=== PATIENT | male | born 1955 | race Caucasian/White ===

== ENCOUNTER → 2022-09-29 09:51 | Outpatient (CLI) | payer MEDICARE, BC, SELFPAY ==
[2022-09-29 14:28] LABS: Basophils # 0.1 K/mm3 (0-0.2); Basophils % 1.4 % (0.1-2.0); Eosinophils # 0.1 K/mm3 (0.0-0.4); Hematocrit 44.1 % (42.0-52.0); Hemoglobin 14.4 g/dL (14.1-18.0); Lymphocytes # 1.9 K/mm3 (0.7-4.5); Lymphocytes % 31.9 % (10-50); Mean Corpuscular HGB Conc 32.6 g/dL (31.8-35.4); Mean Corpuscular Hemoglobin 28.9 pg (27.0-31.2); Mean Corpuscular Volume 88.5 fl (80-94); Mean Platelet Volume 8.3 fl (7.4-10.4); Monocytes # 0.4 K/mm3 (0.1-1.0); Neutrophils # 3.4 K/mm3 (1.8-7.8); Neutrophils % 58.7 % (37.0-80.0); Platelet Count 321 K/mm3 (142-424); Red Blood Count 4.98 M/mm3 (4.60-6.20); Red Cell Distribution Width 13.7 % (11.5-17.5); White Blood Count 5.9 K/mm3 (4.8-10.8)
[2022-09-29 14:35] LABS: Alanine Aminotransferase 22 U/L (12-78); Albumin Level 4.1 g/dl (3.5-5.0); Albumin/Globulin Ratio 1.4 (1.1-1.8); Alkaline Phosphatase 92 U/L (38-126); Anion Gap 9.3 mEq/L (5-15); Aspartate Amino Transferase 34 U/L (17-59); Bilirubin,Total 0.8 mg/dl (0.2-1.3); Blood Urea Nitrogen 13 mg/dl (9-20); Calcium 8.9 mg/dl (8.4-10.2); Carbon Dioxide 25 mmol/L (22.0-30.0); Chloride 112 mmol/L (98-107); Chol/HDL Ratio 5.2 (1-3.5); Cholesterol 162 mg/dl (140-200); Estimated Glomerular Filt Rate 97 ml/min (>60); GFR (African American) 117 ML/MIN (>60); Globulin 2.9 g/dL (1.3-3.2); Glucose 103 mg/dl (74-100); HDL Cholesterol 31 mg/dl (40-60); Potassium 4.3 mmoL/L (3.5-5.1); Sodium 142 mmol/L (136-145); Triglycerides 65 mg/dl (30-150); VLDL Cholesterol 13 mg/dL (0-40)
[2022-09-29 14:52] LABS: Direct LDL Cholesterol 111.65 mg/dL (100-129)
[2022-09-29 14:58] LABS: 25-OH Vitamin D, Total 39.7 ng/mL (30-100)
[2022-09-29 15:14] LABS: Prostate Specific Ag Screen 2.7 ng/ml (0.0-4.0)
== END ==
PROVIDERS: PCP Family Medicine; Visit Provider Family Medicine
DX: Z00.00 Encounter for general adult medical examination without abnormal findings (principal); Z12.5 Encounter for screening for malignant neoplasm of prostate; Z83.3 Family history of diabetes mellitus; Z83.438 Family history of other disorder of lipoprotein metabolism and other lipidemia; R73.9 Hyperglycemia, unspecified
CPT/HCPCS: 80053; 80061; 82306; 84443; 85025; G0103

== ENCOUNTER → 2023-05-17 07:33 | Outpatient (CLI) | payer MEDICARE, MEDICAID, SELFPAY ==
--- NOTE | 2023-05-17 07:45 | ECG_ITS ---
APPROVED REPORT Exam: Resting ECG HR:59 bpm ECG Measurements Heart Rate 59 AXES AZ 163 P 52 QRSd 85 QRS 69 QT 389 T -7 QTc 387 Conclusion SINUS BRADYCARDIA ABNORMAL QRS-T ANGLE [QRS-T AXIS DIFFERENCE > 60] ABNORMAL ECG UNCONFIRMED REPORT Electronically signed by : Michael Tidwell MD 05/18/2023 17:20:21
[2023-05-17 07:57] LABS: Microscopic, Urine URINE MICROSCOPIC (MICROSCOPIC)
[2023-05-17 08:32] LABS: Basophils # 0.1 K/mm3 (0-0.2); Eosinophils # 0.2 K/mm3 (0.0-0.4); Eosinophils % 2.6 % (0.1-12.0); Hematocrit 45.3 % (42.0-52.0); Hemoglobin 13.9 g/dL (14.1-18.0); Lymphocytes # 1.6 K/mm3 (0.7-4.5); Lymphocytes % 28.5 % (10-50); Mean Corpuscular HGB Conc 30.7 g/dL (31.8-35.4); Mean Corpuscular Hemoglobin 28.8 pg (27.0-31.2); Mean Corpuscular Volume 93.7 fl (80-94); Mean Platelet Volume 6.8 fl (7.4-10.4); Monocytes # 0.3 K/mm3 (0.1-1.0); Monocytes % 5.8 % (1.7-9.3); Neutrophils # 3.5 K/mm3 (1.8-7.8); Neutrophils % 62.1 % (37.0-80.0); Platelet Count 298 K/mm3 (142-424); Red Blood Count 4.84 M/mm3 (4.60-6.20); Red Cell Distribution Width 13.6 % (11.5-17.5); White Blood Count 5.7 K/mm3 (4.8-10.8)
[2023-05-17 08:35] LABS: Appearance,Urine CLEAR (Clear); Bilirubin,Urine Negative (Negative); Blood, Urine Negative (Negative); Color,Urine YELLOW (Yellow); Glucose,Urine (UA) Negative (Negative); Ketones,Urine Negative (Negative); Leukocyte Esterase,Urine Negative (Negative); Nitrate,Urine Negative (Negative); Protein,Urine Negative (Negative); Specific Gravity, Urine >= 1.030 (1.005-1.030); Urobilinogen,Urine 0.2 EU/dl (0.2)
[2023-05-17 09:02] LABS: RBC,Urine Occasional #/hpf (0-3); Squamous Epithelial Cell,Urine Occasional #/hpf (0-5)
[2023-05-17 09:03] LABS: Amorphous Sediment,Urine Trace /lpf; Mucus,Urine Trace /lpf
[2023-05-17 09:09] LABS: Anion Gap 12.2 mEq/L (5-15); Blood Urea Nitrogen 13 mg/dl (9-20); Calcium 8.9 mg/dl (8.4-10.2); Carbon Dioxide 25 mmol/L (22.0-30.0); Chloride 111 mmol/L (98-107); Estimated Glomerular Filt Rate 96 ml/min (>60); GFR (African American) 117 ML/MIN (>60); Glucose 118 mg/dl (74-100); Potassium 4.2 mmoL/L (3.5-5.1); Sodium 144 mmol/L (136-145)
== END ==
PROVIDERS: PCP Family Medicine; Visit Provider Surgery
DX: K40.90 Unilateral inguinal hernia, without obstruction or gangrene, not specified as recurrent (principal); S20.219A Contusion of unspecified front wall of thorax, initial encounter; Z01.818 Encounter for other preprocedural examination
CPT/HCPCS: 36415; 80048; 81001; 85025; 93005

== ENCOUNTER 2023-05-25 05:56 | Day surgery (SDC) | payer MEDICARE, MEDICAID, SELFPAY ==
[2023-05-23 12:04] VITALS: BMI 25.0
[2023-05-25] VITALS (10 sets, daily range): BP systolic 116–148; BP diastolic 64–89; PULSE 76–95; RESP 16–20; TEMP 36.4–43; O2SAT 92–95
--- NOTE | 2023-05-25 06:51 | EXP.ANES.CKL ---
[facility] Disclaimer: The information contained in this section may have been updated after the patient was seen, as this information can be updated by other users. Medical History No active medical problems Surgical History H/O hernia repair Mandible open fracture Family History Other Coronary artery disease Diabetes Heart attack Hyperlipidemia Social History Smoking Status: Never smoker how long ago did patient quit smoking: Pt has never used tobacco products alcohol intake: never substance use type: denies use current occupational status: employed Travel in the last 8 weeks: None [facility] Anesthesia Checklist Patient Identification Patient Identification: Arm Band and Family Structural Data Admitted From: Home Planned Operative Procedure/s: Right Inguinal Hernia Repair Consent for Planned Operative Procedure(s) Verified: Yes Verified Documents: Surgical Consent and History and Physical NPO Status Verified Time NPO: 00:00 Additional verifications Anesthesia Reactions: No Hx Blood Transfusions: No Blood Transfusion Reaction: No Cephalosporin Allergy: No Previous Colonoscopy: Yes Airway Assessment Mallampati Score:: Class II C-Spine Mobility Assessed: Yes TMJ Mobility Assessed: Yes Dentition: Partials Neurological Assessment Level of Consciousness: Awake, Alert, Appropriate and Follows Commands Hx Seizures: No Numbness or tingling in extremities: No Anesthesia Plan Anesthesia Risk discussed: Yes ASA Class: I Anesthesia Type: General
--- NOTE | 2023-05-25 08:20 | EXP.ANES.CKL ---
[facility] Disclaimer: The information contained in this section may have been updated after the patient was seen, as this information can be updated by other users. Medical History No active medical problems Surgical History H/O hernia repair Mandible open fracture Family History Other Coronary artery disease Diabetes Heart attack Hyperlipidemia Social History (Updated 05/25/23 @ 06:53 by Deion Marroquin CRNA) Smoking Status: Never smoker how long ago did patient quit smoking: Pt has never used tobacco products alcohol intake: never substance use type: denies use current occupational status: employed Travel in the last 8 weeks: None [facility] Anesthesia Checklist Patient Identification Patient Identification: Arm Band and Family Structural Data Admitted From: Home Planned Operative Procedure/s: Right Inguinal Hernia Repair Consent for Planned Operative Procedure(s) Verified: Yes Verified Documents: Surgical Consent and History and Physical NPO Status Verified Time NPO: 00:00 Additional verifications Anesthesia Reactions: No Hx Blood Transfusions: No Blood Transfusion Reaction: No Cephalosporin Allergy: No Previous Colonoscopy: Yes Airway Assessment Mallampati Score:: Class II C-Spine Mobility Assessed: Yes TMJ Mobility Assessed: Yes Dentition: Partials Neurological Assessment Level of Consciousness: Awake, Alert, Appropriate and Follows Commands Hx Seizures: No Numbness or tingling in extremities: No Anesthesia Plan Anesthesia Risk discussed: Yes ASA Class: I Anesthesia Type: General
--- NOTE | 2023-05-25 09:12 | EXP.ANES.I ---
[facility] Anesthesia Record Part I Anesthesia Record I Intake, IV Amount: 1,600 Hydration: Adequate Estimated blood loss (mL): 15 Urine output (mL): 100 Blood Pressure: 146/78 SaO2: 92 Pulse Rate: 86 Airway Patency: Patent Respiratory Rate: 20 Temperature: 98.3 F Patient is:: Drowsy and Oral/Nasal airway Stable to PACU at:: 09:10
--- NOTE | 2023-05-25 09:21 | EXP.OP.NOTE ---
Date of procedure: 05/25/23 Pre-op Diagnosis:: Right inguinal hernia Post-op Diagnosis:: Same Procedure performed:: Open right inguinal hernia repair Surgeon:: Hai French MD MEDICAL/SURGERY REGISTERED NURSE:: Chelsea Cabral Anesthesia: GETAshley Estimated blood loss (mL): 15 Operative findings:: Complex indirect hernia with significant soft tissue thickening/adhesions throughout canal Operative note:: After informed consent was obtained the patient was taken to the operating room and placed in the supine position. General anesthesia was induced and his abdomen and groin/scrotum were prepped and draped in a sterile fashion. After infiltration with local anesthetic an oblique right groin incision was made sharply. Electrocautery was used to transect through Angel's fascia to the level of the external aponeurosis. The external aponeurosis was opened sharply to the level of the external ring. The contents of the canal were carefully elevated. Significant soft tissue thickening and adhesions noted throughout the canal. A combination of blunt dissection, sharp dissection, and electrocautery was utilized to free the thin-wall hernia sac. The cord structures were protected throughout the procedure. No obvious injury to the vas deferens or vessels was noted. An extra-large PerFix plug was secured in the defect with interrupted Ethibond. The PerFix overlay was then secured to the shelving edge inferiorly and fascial margin superiorly with interrupted Ethibond. The external aponeurosis was reapproximated with running 2-0 Vicryl. Angel's fascia was closed in the same manner. Skin was then reapproximated with running 3-0 Monocryl STRATAFIX. Dressings were applied and the patient was transferred to recovery in stable condition. Condition: stable Disposition: PACU Specimens:: none Complications:: No immediate
--- NOTE | 2023-05-25 11:17 | EXP.ANES.II ---
[facility] Anesthesia Record Part II Anesthesia Record Part II Discharge Time: 09:40 Destination: Surgical Day Care (OP Surgery) PACU nurse assessment reviewed?: Yes Patient Condition:: Good Anesthesia Complications:: None Swallowing reflex intact?: Yes Airway Patency: Patent Cyanosis?: No Blood Pressure: 125/78 SaO2: 95 Respiratory Rate: 16 Pulse Rate: 89 Temperature: 97.6 F Mental Status: Alert & Oriented Pain level:: 0 Nausea and/or vomitting:: None Intake, IV Amount: 500 Hydration: Adequate
[2023-05-25 13:47] LABS: Microscopic,Cath URINE MICROSCOPIC (MICROSCOPIC)
[2023-05-25 14:17] LABS: Appearance,Urine/Cath CLEAR (Clear); Bilirubin,Cath Negative (Negative); Blood, Urine/Cath Negative (Negative); Color,Urine/Cath YELLOW (Yellow); Glucose,Urine/Cath (UA) Negative (Negative); Ketones,Urine/Cath Negative (Negative); Leukocyte Esterase,Cath Negative (Negative); Nitrate,Cath Negative (Negative); Protein,Urine/Cath Negative (Negative); Urobilinogen,Cath 0.2 EU/dl (0.2)
[2023-05-25 16:49] LABS: Bacteria,Urine/Cath TRACE /lpf; Mucus,Urine/Cath Trace /lpf
--- NOTE | 2023-05-26 19:34 | EXP.ANES.CKL ---
[facility] Disclaimer: The information contained in this section may have been updated after the patient was seen, as this information can be updated by other users. Medical History (Updated 06/07/23 @ 10:24 by Hai French MD) Chest wall contusion No active medical problems Right inguinal hernia Toothache Surgical History (Updated 06/07/23 @ 10:02 by SANG Yeung) H/O hernia repair History of colonoscopy History of inguinal hernia repair Mandible open fracture Family History Other Coronary artery disease Diabetes Heart attack Hyperlipidemia Social History Smoking Status: Never smoker how long ago did patient quit smoking: Pt has never used tobacco products alcohol intake: never substance use type: denies use current occupational status: employed Travel in the last 8 weeks: None [facility] Anesthesia Checklist Patient Identification Patient Identification: Arm Band and Family Structural Data Admitted From: Home Additional verifications Anesthesia Reactions: No Hx Blood Transfusions: No Blood Transfusion Reaction: No Cephalosporin Allergy: No
== END 2023-05-25 10:15 | disposition home or self-care (01) ==
PROVIDERS: PCP Family Medicine; Visit Provider Surgery
PROC: (CPT 49505; principal; 2023-05-25 07:30)
DX: K40.90 Unilateral inguinal hernia, without obstruction or gangrene, not specified as recurrent (principal)
CPT/HCPCS: 49505; 81001; 96374; J2405

== ENCOUNTER 2023-09-21 22:59 | Outpatient (CLI) | payer MEDICARE, MEDICAID, SELFPAY ==
[2023-09-21 18:59] LABS: Basophils # 0.1 K/mm3 (0-0.2); Basophils % 1.1 % (0.1-2.0); Eosinophils # 0.1 K/mm3 (0.0-0.4); Eosinophils % 1.5 % (0.1-12.0); Hematocrit 45.9 % (42.0-52.0); Hemoglobin 15.1 g/dL (14.1-18.0); Lymphocytes # 1.8 K/mm3 (0.7-4.5); Lymphocytes % 28.2 % (10-50); Mean Corpuscular HGB Conc 32.8 g/dL (31.8-35.4); Mean Corpuscular Hemoglobin 30.1 pg (27.0-31.2); Mean Corpuscular Volume 91.9 fl (80-94); Mean Platelet Volume 9.3 fl (7.4-10.4); Monocytes # 0.4 K/mm3 (0.1-1.0); Monocytes % 6.6 % (1.7-9.3); Neutrophils # 3.9 K/mm3 (1.8-7.8); Neutrophils % 62.6 % (37.0-80.0); Platelet Count 286 K/mm3 (142-424); Red Cell Distribution Width 14.1 % (11.5-17.5); White Blood Count 6.3 K/mm3 (4.8-10.8)
[2023-09-21 19:47] LABS: Alanine Aminotransferase 19 U/L (12-78); Albumin Level 4.1 g/dl (3.5-5.0); Albumin/Globulin Ratio 1.4 (1.1-1.8); Alkaline Phosphatase 95 U/L (38-126); Anion Gap 13.1 mEq/L (5-15); Aspartate Amino Transferase 28 U/L (17-59); Bilirubin,Total 0.7 mg/dl (0.2-1.3); Blood Urea Nitrogen 15 mg/dl (9-20); Calcium 9.3 mg/dl (8.4-10.2); Carbon Dioxide 24 mmol/L (22.0-30.0); Chloride 108 mmol/L (98-107); Chol/HDL Ratio 6.8 (1-3.5); Cholesterol 198 mg/dl (140-200); Estimated Glomerular Filt Rate 96 ml/min (>60); GFR (African American) 117 ML/MIN (>60); Globulin 2.9 g/dL (1.3-3.2); Glucose 99 mg/dl (74-100); HDL Cholesterol 29 mg/dl (40-60); Potassium 4.1 mmoL/L (3.5-5.1); Sodium 141 mmol/L (136-145); Triglycerides 75 mg/dl (30-150); VLDL Cholesterol 15 mg/dL (0-40)
[2023-09-21 19:58] LABS: Direct LDL Cholesterol 136.85 mg/dL (100-129)
== END 2023-09-21 23:59 ==
LOC: LAB.DROPOF 22:59
PROVIDERS: PCP Family Medicine; Visit Provider Family Medicine
DX: R53.83 Other fatigue; E78.9 Disorder of lipoprotein metabolism, unspecified; Z87.19 Personal history of other diseases of the digestive system; Z98.890 Other specified postprocedural states
CPT/HCPCS: 80053; 80061; 85025

== ENCOUNTER 2023-12-29 09:57 | Outpatient (CLI) | payer MEDICARE, MEDICAID, SELFPAY ==
--- NOTE | 2023-12-29 09:57 | CT_ITS ---
FINAL REPORT TECHNIQUE: Axial CT images of the abdomen and pelvis were obtained before and after the administration of IV contrast. Oral contrast was administered.This study was performed with techniques to keep radiation doses as low as reasonably achievable (ALARA). Individualized dose reduction techniques using automated exposure control or adjustment of mA and/or kV according to the patient''s size were employed. CLINICAL HISTORY: Right flank pain w/ hematuria, distention COMPARISON: None FINDINGS: Abdomen: Mild atelectasis is noted in the lung bases. A large hiatal hernia is present. The heart is normal in size. The liver has an unremarkable appearance, without evidence of mass or biliary duct dilatation. . The spleen is unremarkable. No adrenal masses present. The pancreas has an unremarkable appearance. The kidneys enhance normally. No evidence of renal stone or hydronephrosis is identified. Multiple bilateral renal cysts are present. The aorta is normal in caliber. There is no free fluid or adenopathy. No mass or abnormal fluid collection is seen. Precontrast images demonstrate no evidence of nephrolithiasis. Pelvis: The appendix is normal in appearance. The urinary bladder is unremarkable. No inflammatory process is seen. There is a small left inguinal hernia containing fat. There is a 30 mm low-attenuation collection in the upper right inguinal region that likely represents a postoperative seroma from prior inguinal hernia repair. 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 There is no evidence of mass or adenopathy. There is no evidence of bowel obstruction. IMPRESSION: Large hiatal hernia. No renal stones or hydronephrosis. Small left inguinal hernia with fat. There is a 30 mm low-attenuation collection in the upper right inguinal region that likely represents a postoperative seroma. Reviewed, Interpreted and Dictated by Herman Jordan III, MD Transcribed by Sola Hernandes Authenticated and [facility]
[2023-12-29 10:43] LABS: Blood Urea Nitrogen 16 mg/dl (9-20); Estimated Glomerular Filt Rate 96 ml/min (>60); GFR (African American) 117 ML/MIN (>60)
[2023-12-29] MEDS: SODIUM CHLORIDE 0.9% 10ML SYR (RAD ONLY) 10 ML IV (11:12)
[2023-12-29] MEDS: IOPAMIDOL-370 (76%);100ML BOTTLE 75 ML IV (11:12)
[2023-12-29 12:06] LABS: Prostate Specific Ag Screen 2.5 ng/ml (0.0-4.0)
== END 2023-12-29 23:59 | disposition home or self-care (01) ==
LOC: RAD 09:57
PROVIDERS: PCP Family Medicine; Visit Provider Family Medicine
DX: R10.9 Unspecified abdominal pain (principal); R31.9 Hematuria, unspecified; Z12.5 Encounter for screening for malignant neoplasm of prostate
CPT/HCPCS: 36415; 74178; 82565; 84520; G0103; Q9967

== ENCOUNTER 2024-03-27 09:43 | Outpatient (CLI) | payer MEDICARE, MEDICAID, SELFPAY ==
[2024-03-27 19:08] LABS: Basophils # 0.1 K/mm3 (0-0.2); Basophils % 1.3 % (0.1-2.0); Eosinophils # 0.1 K/mm3 (0.0-0.4); Eosinophils % 1.1 % (0.1-12.0); Hematocrit 46.2 % (42.0-52.0); Hemoglobin 14.9 g/dL (14.1-18.0); Lymphocytes # 1.8 K/mm3 (0.7-4.5); Lymphocytes % 26.9 % (10-50); Mean Corpuscular HGB Conc 32.3 g/dL (31.8-35.4); Mean Corpuscular Hemoglobin 30.2 pg (27.0-31.2); Mean Corpuscular Volume 93.7 fl (80-94); Mean Platelet Volume 9.1 fl (7.4-10.4); Monocytes # 0.5 K/mm3 (0.1-1.0); Monocytes % 7.3 % (1.7-9.3); Neutrophils # 4.4 K/mm3 (1.8-7.8); Neutrophils % 63.4 % (37.0-80.0); Platelet Count 301 K/mm3 (142-424); Red Blood Count 4.93 M/mm3 (4.60-6.20); White Blood Count 6.9 K/mm3 (4.8-10.8)
[2024-03-27 20:00] LABS: Alanine Aminotransferase 20 U/L (12-78); Albumin/Globulin Ratio 1.2 (1.1-1.8); Alkaline Phosphatase 99 U/L (38-126); Anion Gap 11.6 mEq/L (5-15); Aspartate Amino Transferase 27 U/L (17-59); Bilirubin,Total 1.1 mg/dl (0.2-1.3); Blood Urea Nitrogen 18 mg/dl (9-20); Calcium 9.4 mg/dl (8.4-10.2); Carbon Dioxide 26 mmol/L (22.0-30.0); Chloride 107 mmol/L (98-107); Chol/HDL Ratio 6.5 (1-3.5); Cholesterol 208 mg/dl (140-200); Estimated Glomerular Filt Rate 84 ml/min (>60); GFR (African American) 102 ML/MIN (>60); Globulin 3.4 g/dL (1.3-3.2); Glucose 111 mg/dl (74-100); HDL Cholesterol 32 mg/dl (40-60); Potassium 4.6 mmoL/L (3.5-5.1); Sodium 140 mmol/L (136-145); Total Protein,Serum 7.4 g/dl (6.3-8.2); Triglycerides 104 mg/dl (30-150); VLDL Cholesterol 21 mg/dL (0-40)
[2024-03-27 20:12] LABS: Direct LDL Cholesterol 130.06 mg/dL (100-129)
[2024-03-28 13:08] LABS: Prostate Specific Ag Screen 3.4 ng/ml (0.0-4.0)
== END 2024-03-27 23:59 | disposition home or self-care (01) ==
LOC: LAB.DROPOF 03-28 09:43
PROVIDERS: PCP Family Medicine; Visit Provider Family Medicine
DX: R10.9 Unspecified abdominal pain; E78.6 Lipoprotein deficiency; Z12.5 Encounter for screening for malignant neoplasm of prostate
CPT/HCPCS: 80053; 80061; 85025; G0103

== ENCOUNTER 2024-10-23 10:45 | Outpatient (CLI) | payer OTHER, MEDICAID, SELFPAY ==
[2024-10-23 21:45] LABS: Basophils # 0.1 K/mm3 (0-0.2); Basophils % 1.7 % (0.1-2.0); Eosinophils # 0.1 K/mm3 (0.0-0.4); Eosinophils % 1.1 % (0.1-12.0); Hematocrit 46.3 % (42.0-52.0); Hemoglobin 14.6 g/dL (14.1-18.0); Lymphocytes # 1.7 K/mm3 (0.7-4.5); Lymphocytes % 26.5 % (10-50); Mean Corpuscular HGB Conc 31.5 g/dL (31.8-35.4); Mean Platelet Volume 9.7 fl (7.4-10.4); Monocytes # 0.5 K/mm3 (0.1-1.0); Monocytes % 7.2 % (1.7-9.3); Neutrophils # 4.1 K/mm3 (1.8-7.8); Neutrophils % 63.3 % (37.0-80.0); Platelet Count 332 K/mm3 (142-424); Red Blood Count 5.03 M/mm3 (4.60-6.20); Red Cell Distribution Width 14.2 % (11.5-17.5); White Blood Count 6.5 K/mm3 (4.8-10.8)
[2024-10-23 23:01] LABS: Albumin Level 4.2 g/dl (3.5-5.0); Chloride 107 mmol/L (98-107); Sodium 140 mmol/L (136-145)
[2024-10-23 23:02] LABS: Potassium 4.3 mmoL/L (3.5-5.1)
[2024-10-23 23:04] LABS: Alanine Aminotransferase 22 U/L (12-78); Albumin/Globulin Ratio 1.5 (1.1-1.8); Alkaline Phosphatase 123 U/L (38-126); Anion Gap 10.3 mEq/L (5-15); Aspartate Amino Transferase 29 U/L (17-59); Bilirubin,Total 0.7 mg/dl (0.2-1.3); Blood Urea Nitrogen 12 mg/dl (9-20); Carbon Dioxide 27 mmol/L (22.0-30.0); Cholesterol 184 mg/dl (140-200); Estimated Glomerular Filt Rate 96 ml/min (>60); GFR (African American) 116 ML/MIN (>60); Globulin 2.8 g/dL (1.3-3.2); Triglycerides 54 mg/dl (30-150); VLDL Cholesterol 11 mg/dL (0-40)
[2024-10-23 23:05] LABS: Calcium 9.3 mg/dl (8.4-10.2); Chol/HDL Ratio 5.4 (1-3.5); Glucose 103 mg/dl (74-100); HDL Cholesterol 34 mg/dl (40-60)
[2024-10-23 23:15] LABS: Direct LDL Cholesterol 132.21 mg/dL (100-129)
[2024-10-23 23:48] LABS: HIV Combo NEGATIVE (Negative)
[2024-10-23 23:54] LABS: Hepatitis C Ab Qual. W/ RFX NEGATIVE (Negative)
== END 2024-10-23 23:59 | disposition home or self-care (01) ==
LOC: LAB.DROPOF 10-24 12:34
PROVIDERS: PCP Family Medicine; Visit Provider Family Medicine
DX: Z00.00 Encounter for general adult medical examination without abnormal findings (principal); Z11.59 Encounter for screening for other viral diseases
CPT/HCPCS: 80053; 80061; 85025; 86803; 87389

== ENCOUNTER 2025-06-25 09:50 | Outpatient (CLI) | payer MEDICARE, MEDICAID, SELFPAY ==
--- OUTSIDE RECORDS SUMMARY | 2025-06-26 20:14 | XMS_ITS | Data Portability ---
Author Organization [facility] Address [address] [place] [address] Assessment No assessment recorded. Plan of Treatment Reminders Order Date Submit Date Provider Last Modified By Organization Details Last Modified Time Details Appointments None recorded. Lab PSA, total, serum or plasma 2021 FREIDA [facility], [address], [place], [place], [address], 09:15:02 lipid panel, serum 2021 022 FREIDA [facility], [address], [place], [place], [address], 09:15:01 CMP, serum or plasma 2021 022 FREIDA [facility], [address], [place], [place], [address], 09:15:00 lipid panel, serum 2021 022 [facility], [address], [place], [place], [address], 10:21:56 CMP, serum or plasma 2021 022 [email or web address] [facility], [address], [place], [place], [address], 10:21:56 HbA1c (hemoglobin A1c), blood 2021 022 [email or web address] [facility], [address] [place], [address], 10:17:34 glucose, fingerstick , blood 2021 [email or web address] [facility], [address] [place], [address], 10:17:34 TSH, ultra-sensi tive, serum 2021 [email or web address] [facility], [address], [place], [place], [address], 10:21:56 CBC w/ auto diff 2021 [email or web address] [facility], [address], [place], [place], [address], 10:21:56 PSA, serum or plasma 2021 FREIDA [facility], [address], [place], [place], [address], 08:26:32 vitamin D, 25-hydroxy, total, serum 2021 [email or web address] [facility], [address], [place], [place], [address], 13:59:30 lipid panel, serum 2021 FREIDA [facility], [address], [place], [place], [address], 08:26:32 CMP, serum or plasma 2021 FREIDA [facility], [address] [place], [place], [address], 08:26:31 TSH, ultra-sensi tive, serum 2021 TINNIE [facility], [address], [place], [place], [address], 04:09:14 CBC w/ auto diff 2021 TINNIE [facility], [address], [place], [place], [address], 08:26:30 Referral None recorded. Procedures None recorded. Surgeries None recorded. Imaging XR, cervical spine, 2 or 3 view [address], [address] [place], [address], 15:05:47 XR, sinuses, paranasal, 3 or more view 2021 [facility], [address] [place], [address], 09:06:27 Medication Orders tramadol 50 mg tablet 2021 [facility], [address] [place] [address], [address], 15:40:45 cyclobenzap rine 5 mg tablet 2021 [facility], [address] [place] [address], [address], 15:40:41 diclofenac sodium 50 mg tablet,isaias yed release [address] [facility], [address] [place] [address], [address], 15:05:47 omeprazole 20 mg capsule,del ayed release 01/26/ 2022 01/26/2 022 [email or web address] [facility], [address] [place] [address], [address], 12:56:42 prednisone 5 mg tablets in a dose pack 2021 FREIDA [facility], [address] [place] [address], [address], 08:38:06 Bactrim DS 800 mg-160 mg tablet 2021 [email or web address] [facility], [address] [place] [address], [address], 08:36:13 Patient TargetsNo targets recorded. Patient Instructions Encounter Date Encounter Id Patient Instructions Last Modified By Organization Details Last Modified Time 09/15/2021 [id number] Acute Sinusitis: Care Instructions [email or web address] Not available 09/16/2021 15:25:27 gastroesophageal reflux disease (GERD): care instructions [email or web address] Not available 09/16/2021 15:25:27 high cholesterol : care instructions Not available 09/16/2021 15:25:27 Patient comes in with a couple of things he still complaining of abdominal discomfort he does have a history of hiatal hernia he also complains of drainage with some headache and sinus-like symptoms.Mild thickening is noted on sinus x-rays I feel like he most likely does have a and sinusitis I suspect his abdominal does discomfort is so associated with his GERD we will go ahead and treat both of these see how he does if he does not get substantial relief I would be for referring him particularly for ENT and possibly GI consideration thank you. [email or web address] Not available 09/16/2021 15:24:59 03/31/2022 [id number] pt. complaining of chonic h/a but says is improvede, still with fatigue, to get base line lab work, if h/a cont. may need ent or neurology. back with him on lab work. [email or web address] Not available 04/04/2022 10:55:22 06/09/2022 [id number] arthritis: care instructions Not available 06/09/2022 14:51:29 osteoarthritis: care instructions [email or web address] Not available 06/09/2022 14:51:29 Patient complain ing of cervical crepitance and some cervical discomfort patient states he hit his head about 8 days ago and since that time is So x-ray did reveal moderate degenerative or osteoarthritis changesOffer him diclofenac 50 mg twice daily patient is also requesting some blood work going get some routine blood work on him today as wellDiscomfort if his discomfort continues he is to return thank you. [email or web address] Not available 06/09/2022 14:51:04 07/07/2022 [id number] This patient com es in after having a fall 2 days ago said he fell quite hard on him on some steps he complains of pain in his right lower costal vertebral angle he denies pain in his back per se are his extremities.Urinalys is is negative for blood etc. most likely this is muscular I did we have been treating with muscle relaxants pain medication. He is to add heat etc. if his discomfort persist we will get an x-ray on him and outside of this office. Tachycardia is is off today due to illness he is to return as needed depending upon how his symptoms progress thank you [email or web address] Not available 07/07/2022 16:44:10 Reason for Referral None Reported. Results Created Date Observation Date Name Description Value Unit Range Abnormal Flag Note LastModifiedBy Organization Detail LastModifiedTime 11/04/19 22 11/04/2021 CBC WITH DIFFE RENTI AL/PL ATELE T WBC 6.2 x10e3 /uL 3.4-10 .8 Not Available [facility] ([facility]) [address] [place], [address], 11/04/2021 08:26:30 11/04/19 22 11/04/2021 CBC WITH DIFFE RENTI AL/PL ATELE T RBC 5.09 x10e6 /uL 4.14-5 .80 Not Available [facility] ([facility]) [address] [place], [address], 11/04/2021 08:26:30 11/04/19 22 11/04/2021 CBC WITH DIFFE RENTI AL/PL ATELE T hemoglobin 14.9 g/dL 13.0-1 7.7 Not Available [facility] ([facility]) [address] [place], [address], 11/04/2021 08:26:30 11/04/19 22 11/04/2021 CBC WITH DIFFE RENTI AL/PL ATELE T hematocrit 44.9 % 37.5-5 1.0 Not Available [facility] ([facility]) [address] [place], [address], 11/04/2021 08:26:30 11/04/19 22 11/04/2021 CBC WITH DIFFE RENTI AL/PL ATELE T MCV 88 fL 79-97 Not Available [facility] ([facility]) [address] [facility], [place], [address], 11/04/2021 08:26:30 11/04/19 22 11/04/2021 CBC WITH DIFFE RENTI AL/PL ATELE T MCH 29.3 pg 26.6-3 3.0 Not Available [facility] ([facility]) [address] [place], [address], 11/04/2021 08:26:30 11/04/19 22 11/04/2021 CBC WITH DIFFE RENTI AL/PL ATELE T MCHC 33.2 g/dL 31.5-3 5.7 Not Available [facility] ([facility]) [address] [place], [address], 11/04/2021 08:26:30 11/04/19 22 11/04/2021 CBC WITH DIFFE RENTI AL/PL ATELE T RDW 13.6 % 11.6-1 5.4 Not Available [facility] ([facility]) [address] [place], [address], 11/04/2021 08:26:30 11/04/19 22 11/04/2021 CBC WITH DIFFE RENTI AL/PL ATELE T platelets 290 x10e3 /uL 150-45 0 Not Available [facility] ([facility]) [address] [facility], [place], [address], 11/04/2021 08:26:30 11/04/19 22 11/04/2021 CBC WITH DIFFE RENTI AL/PL ATELE T neutrophils 61 % not estab. Not Available [facility] ([facility]) [address] [facility], [place], [address], 11/04/2021 08:26:30 11/04/19 22 11/04/2021 CBC WITH DIFFE RENTI AL/PL ATELE T lymphs 28 % not estab. Not Available [facility] ([facility]) [address] [facility], [place], [address], 11/04/2021 08:26:30 11/04/19 22 11/04/2021 CBC WITH DIFFE RENTI AL/PL ATELE T monocytes 8 % not estab. Not Available [facility] ([facility]) [address] [facility], [place], [address], 11/04/2021 08:26:30 11/04/19 22 11/04/2021 CBC WITH DIFFE RENTI AL/PL ATELE T eos 2 % not estab. Not Available [facility] ([facility]) [address] [facility], [place], [address], 11/04/2021 08:26:30 11/04/19 22 11/04/2021 CBC WITH DIFFE RENTI AL/PL ATELE T basos 1 % not estab. Not Available [facility] ([facility]) [address] [facility], [place], [address], 11/04/2021 08:26:30 11/04/19 22 11/04/2021 CBC WITH DIFFE RENTI AL/PL ATELE T immature cells MILK PASTEURIZER Not Available [facility] ([facility]) [address] [facility], [place], [address], 11/04/2021 08:26:30 11/04/19 22 11/04/2021 CBC WITH DIFFE RENTI AL/PL ATELE T neutrophils (absolute) 3.8 x10e3 /uL 1.4-7. 0 Not Available [facility] ([facility]) [address] [facility], [place], [address], 11/04/2021 08:26:30 11/04/19 22 11/04/2021 CBC WITH DIFFE RENTI AL/PL ATELE T lymphs (absolute) 1.7 x10e3 /uL 0.7-3. 1 Not Available [facility] ([facility]) [address] [place], [address], 11/04/2021 08:26:30 11/04/19 22 11/04/2021 CBC WITH DIFFE RENTI AL/PL ATELE T monocytes(ab solute) 0.5 x10e3 /uL 0.1-0. 9 Not Available [facility] ([facility]) [address] [place], [address], 11/04/2021 08:26:30 11/04/19 22 11/04/2021 CBC WITH DIFFE RENTI AL/PL ATELE T eos (absolute) 0.1 x10e3 /uL 0.0-0. 4 Not Available [facility] ([facility]) [address] [place], [address], 11/04/2021 08:26:30 11/04/19 22 11/04/2021 CBC WITH DIFFE RENTI AL/PL ATELE T baso (absolute) 0.1 x10e3 /uL 0.0-0. 2 Not Available [facility] ([facility]) [address] [place], [address], 11/04/2021 08:26:30 11/04/19 22 11/04/2021 CBC WITH DIFFE RENTI AL/PL ATELE T immature granulocytes 0 % not estab. Not Available [facility] ([facility]) [address] [facility], [place], [address], 11/04/2021 08:26:30 11/04/19 22 11/04/2021 CBC WITH DIFFE RENTI AL/PL ATELE T immature grans (abs) 0.0 x10e3 /uL 0.0-0. 1 Not Available [facility] ([facility]) [address] [facility], [place], [address], 11/04/2021 08:26:30 11/04/19 22 11/04/2021 CBC WITH DIFFE RENTI AL/PL ATELE T NRBC MILK PASTEURIZER Not Available [facility] ([facility]) [address] [facility], [place], [address], 11/04/2021 08:26:30 11/04/19 22 11/04/2021 CBC WITH DIFFE RENTI AL/PL ATELE T hematology comments: MILK PASTEURIZER Not Available [facility] ([facility]) [address] [facility], [place], [address], 11/04/2021 08:26:30 11/04/19 22 11/04/2021 COMP. METAB OLIC PANEL (14) glucose 97 mg/dL 65-99 Not Available [facility] ([facility]) [address] [facility], [place], [address], 11/04/2021 08:26:31 11/04/19 22 11/04/2021 COMP. METAB OLIC PANEL (14) BUN 15 mg/dL 8-27 Not Available [facility] ([facility]) [address] [facility], [place], [address], 11/04/2021 08:26:31 11/04/19 22 11/04/2021 COMP. METAB OLIC PANEL (14) creatinine 0.83 mg/dL 0.76-1 .27 Not Available [facility] ([facility]) [address] [facility], [place], [address], 11/04/2021 08:26:31 03/16/20 22 11/04/2021 COMP. METAB OLIC PANEL (14) eGFR 97 mL/mi n/1.7 3 >59 Not Available [facility] ([facility]) [address] [place], [address], 11/04/2021 08:26:31 11/04/19 22 11/04/2021 COMP. METAB OLIC PANEL (14) BUN/creatini ne ratio 18 10-24 Not Available [facility] ([facility]) [address] [place], [address], 11/04/2021 08:26:31 11/04/19 22 11/04/2021 COMP. METAB OLIC PANEL (14) sodium 143 mmol/ L 134-14 4 Not Available [facility] ([facility]) [address] [place], [address], 11/04/2021 08:26:31 11/04/19 22 11/04/2021 COMP. METAB OLIC PANEL (14) potassium 4.4 mmol/ L 3.5-5. 2 Not Available [facility] ([facility]) [address] [place], [address], 11/04/2021 08:26:31 11/04/19 22 11/04/2021 COMP. METAB OLIC PANEL (14) chloride 107 mmol/ L 96-106 above high normal Not Available [facility] ([facility]) [address] [place], [address], 11/04/2021 08:26:31 11/04/19 22 11/04/2021 COMP. METAB OLIC PANEL (14) carbon dioxide, total 21 mmol/ L 20-29 Not Available [facility] ([facility]) [address] [place], [address], 11/04/2021 08:26:31 11/04/19 22 11/04/2021 COMP. METAB OLIC PANEL (14) calcium 9.3 mg/dL 8.6-10 .2 Not Available [facility] ([facility]) [address] [facility], [place], [address], 11/04/2021 08:26:31 11/04/19 22 11/04/2021 COMP. METAB OLIC PANEL (14) protein, total 7.3 g/dL 6.0-8. 5 Not Available [facility] ([facility]) [address] [facility], [place], [address], 11/04/2021 08:26:31 11/04/19 22 11/04/2021 COMP. METAB OLIC PANEL (14) albumin 4.4 g/dL 3.8-4. 8 Not Available [facility] ([facility]) [address] [facility], [place], [address], 11/04/2021 08:26:31 11/04/19 22 11/04/2021 COMP. METAB OLIC PANEL (14) globulin, total 2.9 g/dL 1.5-4. 5 Not Available [facility] ([facility]) [address] [facility] [place], [address], 11/04/2021 08:26:31 11/04/19 22 11/04/2021 COMP. METAB OLIC PANEL (14) A/G ratio 1.5 1.2-2. 2 Not Available [facility] ([facility]) [address] [facility], [place], [address], 11/04/2021 08:26:31 11/04/19 22 11/04/2021 COMP. METAB OLIC PANEL (14) bilirubin, total 0.6 mg/dL 0.0-1. 2 Not Available [facility] ([facility]) [address] [facility] [place], [address], 11/04/2021 08:26:31 11/04/19 22 11/04/2021 COMP. METAB OLIC PANEL (14) alkaline phosphatase 101 IU/L 44-121 Not Available [facility] [address] [facility] [place], [address], 11/04/2021 08:26:31 11/04/19 22 11/04/2021 COMP. METAB OLIC PANEL (14) AST (SGOT) 18 IU/L 0-40 Not Available [facility] ([facility]) [address] [facility] [place], [address], 11/04/2021 08:26:31 11/04/19 22 11/04/2021 COMP. METAB OLIC PANEL (14) ALT (SGPT) 13 IU/L 0-44 Not Available [facility] ([facility]) [address] [facility] [place], [address], 11/04/2021 08:26:31 11/04/19 22 11/04/2021 LIPID PANEL cholesterol, total 195 mg/dL 100-19 9 Not Available [facility] ([facility]) [address] [place], [address], 11/04/2021 08:26:31 11/04/19 22 11/04/2021 LIPID PANEL triglyceride s 82 mg/dL 0-149 Not Available [facility] ([facility]) [address] [place], [address], 11/04/2021 08:26:31 11/04/19 22 11/04/2021 LIPID PANEL HDL cholesterol 31 mg/dL >39 below low normal Not Available [facility] ([facility]) [address] [place], [address], 11/04/2021 08:26:31 11/04/19 22 11/04/2021 LIPID PANEL VLDL cholesterol derek 15 mg/dL 5-40 Not Available [facility] ([facility]) [address] [place], [address], 11/04/2021 08:26:31 11/04/19 22 11/04/2021 LIPID PANEL LDL chol calc (nih) 149 mg/dL 0-99 above high normal Not Available [facility] ([facility]) [address] [facility], [place], [address], 11/04/2021 08:26:31 11/04/19 22 11/04/2021 LIPID PANEL comment: MILK PASTEURIZER Not Available [facility] ([facility]) [address] [facility], [place], [address], 11/04/2021 08:26:31 11/04/1911/03/2021 PSA TOTAL (REFL EX TO FREE) reflex criteria Commen t The perce nt free PSA is perfo rmed on a refle x basis only when the total PSA is betwe en 4.0 and 10.0 ng/mL . Not Available [facility] ([facility]) [address] [facility], [place], [address], 11/04/2021 08:26:32 11/04/1911/04/2021 PSA TOTAL (REFL EX TO FREE) prostate specific Ag 2.5 NG/mL 0.0-4. 0 Ailyn ECLIA metho dolog y. Accor ding to the Ameri can Urolo gical Assoc iatio n, Serum PSA shoul d decre ase and remai n at undet ectab le level s after radic al prost atect dominick. The AUA defin es bioch emica l recur rence as an initi al PSA value 0.2 ng/mL or great er follo wed by a subse quent confi rmato ry PSA value 0.2 ng/mL or great er. Value s obtai antione with diffe rent assay metho ds or kits canno t be used inter brand eably . Resul ts canno t be inter prete d as absol dario evide nce of the prese nce or absen ce of michael flannery se. Not Available [facility] ([facility]) [address] [facility], [place], [address], 11/04/2021 08:26:32 11/04/1911/04/2021 VERBA L ORDER see below: Commen t: Michael hunteri de reque sted infor matalen n and fax to [phone]. [place] of [place] Reg[place] ation s requi res a writt en and luis d reque st be forwa rded to a labor atory follo wing a verba l order of a labor atory test. Michael hill t us to meet this requi remen t and to compl ete our recor ds. Date: ICD- Diagn osis Code( s):__ _ Physi zelda or Autho rized Desig nee:_ _ Pleas e Print Physi zelda or Autho rized Desig nee Signa ture: Your Signa ture Confi roc Your Order Of The Test( s) Listran d Not Available [facility] ([facility]) [address] [facility], [place], [address], 11/04/2021 14:13:15 11/04/19 22 11/04/2021 VERBA L ORDER additional test(s) requested Commen t: Test( s) added per Eladia Granger at acc nt 11-04 Logge d by Anton Rivas brisa Test# [id number] TSH Diagn osis Codes Provi ded E 78.5 E66.3 Z12.5 Z00.0 0 Not Available [facility] ([facility]) [address] [facility], [place], [address], 11/04/2021 14:13:15 11/04/19 22 11/05/2021 TSH TSH 1.640 uIU/m L 0.450- 4.500 Not Available [facility] ([facility]) [address] [facility], [place], [address], 11/05/2021 04:09:14 11/04/19 22 11/04/2021 WRITT EN AUTHO RIZAT ION written authorizatio n Joseen t Writt en Autho rizat ion Recei blade. Autho rizat ion recei blade from EVITA FONSECA ON FILE 11-04 Logge d by Nany swanson Not Available [facility] ([facility]) [address] [facility], [place], [address], 11/05/2021 04:09:15 03/31/20 22 03/31/2022 HbA1c (hemo globi n A1c), blood HbA1C 6.1 % Not Available [facility] [address] [place], [address], 03/31/2022 16:10:24 03/31/20 22 03/31/2022 gluco se, finge rstic k, blood Blood Glucose: mg/dl 90 Not Available [facility] [address] [place], [address], 03/31/2022 16:10:26 06/09/20 22 06/10/2022 COMP. METAB OLIC PANEL (14) glucose 87 mg/dL 70-99 Not Available [facility] ([facility]) [address] [facility], [place], [address], 06/10/2022 09:15:00 06/09/20 22 06/10/2022 COMP. METAB OLIC PANEL (14) BUN 13 mg/dL 8-27 Not Available [facility] ([facility]) [address] [facility] [place], [address], 06/10/2022 09:15:00 06/09/20 22 06/10/2022 COMP. METAB OLIC PANEL (14) creatinine 0.91 mg/dL 0.76-1 .27 Not Available [facility] ([facility]) [address] [facility] [place], [address], 06/10/2022 09:15:00 06/09/20 22 06/10/2022 COMP. METAB OLIC PANEL (14) eGFR 93 mL/mi n/1.7 3 >59 Not Available [facility] ([facility]) [address] [facility] [place], [address], 06/10/2022 09:15:00 06/09/20 22 06/10/2022 COMP. METAB OLIC PANEL (14) BUN/creatini ne ratio 14 10-24 Not Available [facility]) [address] [facility] [place], [address], 06/10/2022 09:15:00 06/09/20 22 06/10/2022 COMP. METAB OLIC PANEL (14) sodium 140 mmol/ L 134-14 4 Not Available [facility] ([facility]) [address] [facility] [place], [address], 06/10/2022 09:15:00 06/09/20 22 06/10/2022 COMP. METAB OLIC PANEL (14) potassium 4.3 mmol/ L 3.5-5. 2 Not Available [facility] ([facility]) [address] [facility] [place], [address], 06/10/2022 09:15:00 06/09/20 22 06/10/2022 COMP. METAB OLIC PANEL (14) chloride 104 mmol/ L 96-106 Not Available [facility] ([facility]) [address] [place], [address], 06/10/2022 09:15:00 06/09/20 22 06/10/2022 COMP. METAB OLIC PANEL (14) carbon dioxide, total 23 mmol/ L 20-29 Not Available [facility] ([facility]) [address], [place], [address], 06/10/2022 09:15:00 06/09/20 22 06/10/2022 COMP. METAB OLIC PANEL (14) calcium 9.5 mg/dL 8.6-10 .2 Not Available [facility] ([facility]) [address], [place], [address], 06/10/2022 09:15:00 06/09/20 22 06/10/2022 COMP. METAB OLIC PANEL (14) protein, total 7.0 g/dL 6.0-8. 5 Not Available [facility] ([facility]) [address], [place], [address], 06/10/2022 09:15:00 06/09/20 22 06/10/2022 COMP. METAB OLIC PANEL (14) albumin 4.4 g/dL 3.8-4. 8 Not Available [facility] ([facility]) [address], [place], [address], 06/10/2022 09:15:00 06/09/20 22 06/10/2022 COMP. METAB OLIC PANEL (14) globulin, total 2.6 g/dL 1.5-4. 5 Not Available [facility] ([facility]) [address] [place], [address], 06/10/2022 09:15:00 06/09/20 22 06/10/2022 COMP. METAB OLIC PANEL (14) A/G ratio 1.7 1.2-2. 2 Not Available [facility] ([facility]) [address] [place], [address], 06/10/2022 09:15:00 06/09/20 22 06/10/2022 COMP. METAB OLIC PANEL (14) bilirubin, total 0.7 mg/dL 0.0-1. 2 Not Available [facility] ([facility]) [address] [place], [address], 06/10/2022 09:15:00 06/09/20 22 06/10/2022 COMP. METAB OLIC PANEL (14) alkaline phosphatase 105 IU/L 44-121 Not Available [facility] [address] [place], [address], 06/10/2022 09:15:00 06/09/20 22 06/10/2022 COMP. METAB OLIC PANEL (14) AST (SGOT) 21 IU/L 0-40 Not Available [facility] ([facility]) [address] [place], [address], 06/10/2022 09:15:00 06/09/20 22 06/10/2022 COMP. METAB OLIC PANEL (14) ALT (SGPT) 15 IU/L 0-44 Not Available [facility] ([facility]) [address] [place], [address], 06/10/2022 09:15:00 06/09/20 22 06/10/2022 LIPID PANEL cholesterol, total 189 mg/dL 100-19 9 Not Available [facility] ([facility]) [address] [place], [address], 06/10/2022 09:15:01 06/09/20 22 06/10/2022 LIPID PANEL triglyceride s 74 mg/dL 0-149 Not Available [facility] ([facility]) [address] [place], [address], 06/10/2022 09:15:01 06/09/20 22 06/10/2022 LIPID PANEL HDL cholesterol 33 mg/dL >39 below low normal Not Available [facility] ([facility]) [address] [facility], [place], [address], 06/10/2022 09:15:01 06/09/2006/10/2022 LIPID PANEL VLDL cholesterol derek 14 mg/dL 5-40 Not Available [facility] ([facility]) [address] [facility], [place], [address], 06/10/2022 09:15:01 06/09/20 22 06/10/2022 LIPID PANEL LDL chol calc ([facility]) 142 mg/dL 0-99 above high normal Not Available [facility] ([facility]) [address] [facility], [place], [address], 06/10/2022 09:15:01 06/09/2006/10/2022 LIPID PANEL comment: MILK PASTEURIZER Not Available [facility] ([facility]) [address] [facility], [place], [address], 06/10/2022 09:15:01 06/09/2006/10/2022 PROST ATE-S PECIF IC AG prostate specific Ag 2.6 NG/mL 0.0-4. 0 Ailyn ECLIA metho dolog y. Accor ding to the [employer]i [employer] n, Serum PSA shoul d decre ase and remai n at undet ectab le level s after radic al prost atect dominick. The AUA defin es bioch emica l recur rence as an initi al PSA value 0.2 ng/mL or great er follo wed by a subse quent confi rmato ry PSA value 0.2 ng/mL or great er. Value s obtai antione with diffe rent assay metho ds or kits canno t be used inter brand eably . Resul ts canno t be inter prete d as absol dario evide nce of the prese nce or absen ce of [facility] toth se. Not Available [facility] ([facility]) [address] [facility], [place], [address], 06/10/2022 09:15:01 09/21/19 22 XR, sinus es, paran lv, 3 or more view No observ ation record ed. [email or web address] [facility] [address] [place], [address], 09/21/2021 12:38:33 06/09/20 22 XR, cervi derek spine , 2 or 3 view No observ ation record ed. [email or web address] [facility] [address] [place], [address], 06/09/2022 15:24:26 Result Notes None recorded. Problems Name Problem SNOMED Code Status Onset Date Resolution Date Notes Provider Name and Address Organization Details Recorded Time Disorder of bursa 35196053 Completed 201503/23/2017 Ochoa Pickard MD [address], [place], [address], [place] - [facility] 7 16:56:01 Otitis externa 4115947 Completed 201608/23/2018 Ochoa Pickard MD [address], [place], [address], [place] [facility] 9 08:12:57 Otitis media 61294013 Completed 201603/23/2017 Leonor garcia, [place] - [facility] 9 14:53:19 Acute bronchitis 53324624 Completed 201608/23/2018 Leon[place] garcia[place] - [facility] 9 14:53:11 Hyperlipide fabiana 26492802 Active 2016 Ochoa Pickard MD [address], [place], [address], [place] [facility] 7 16:57:03 Abdominal pain 67580530 Completed 201708/23/2018 Leon[place] garcia[place] - [facility] 9 15:01:20 Chest discomfort 939276133 Completed 201708/23/2018 Leon[place] - [facility] 9 14:53:14 Contusion of foot 39645208 Completed 201708/23/2018 Leonor Peres null[place] - [facility] 9 14:53:21 Otitis media 86984266 Completed 201708/23/2018 Leonor Peres [place] [facility] 9 14:53:19 Otitis 15281921 Completed 201805/01/2019 Amisha Glass null[place] - [facility] 9 15:01:10 Bronchitis 38962901 Completed 201805/01/2019 Amisha Glass null[place] - [facility] 9 15:01:07 Soft tissue lesion of foot region 797075814 Active 2018 Ochoa Pickard MD [address], [place], [address], [place] [facility] 9 11:19:42 Bowel sounds hyperactive 32028874 Active 2018 Ochoa Pickard MD [address], [place], [address], [place] [facility] 9 14:26:31 Heat exposure 89657110 Active 2018 Ochoa Pickard MD [address], [place], [address], [place] [facility] 9 15:48:18 Otitis externa 0522180 Active 2018 Ochoa Pickard MD [address], [place], [address], [place] [facility] 9 08:12:57 Fatigue 15341501 Active 2019 Ochoa Pickard MD [address], [place], [address], [place] [facility] 0 08:21:27 Insomnia 766784145 Active 2019 Ochoa Pickard MD [address], [place], [address] [facility] 0 08:21:57 Abdominal discomfort 01405129 Active 2020 Ochoa Pickard MD [address], [place], [address] [facility] 1 20:08:07 Acute sinusitis 01648622 Active 2021 Ochoa Pickard MD [address], [place], [address], [place] [facility] 2 15:22:46 Gastroesoph ageal reflux disease 136373705 Active 2021 Ochoa Pickard MD [address], [place], [address], [place] [facility] 2 15:23:03 Headache 74473451 Active 2021 Ochoa Pickard MD [address], [place], [address], [place] [facility] 2 10:53:19 Osteoarthri tis 162220641 Active 2021 Ochoa Pickard MD [address], [place], [address], [place] [facility] 2 14:49:12 Problem Notes None recorded. Procedures Surgical History Date Name Laterality Status Provider Name and Address Organization Details Recorded Time 2 A1C level 6.9 and below completed [facility] 03/31/2022 16:10:13 0 Diastolic B/P 80-89 mm Hg completed [facility] 04/22/2020 15:55:44 0 Systolic B/P 130-139 mm Hg completed [facility] 04/22/2020 15:55:40 9 Systolic B/P less than 130 mm Hg completed [facility] 05/01/2019 15:37:29 9 Diastolic B/P less than 80 mm Hg completed [facility] 05/01/2019 15:37:40 Hernia Repair completed Rosa Dick [place] - [facility] 08/23/2018 14:32:17 Imaging Results None recorded. Procedure Notes None recorded. Medical Equipment None Reported. Allergies Allergen ID Allergen Name Allergen Category Reaction Reaction Severity Criticality Documentation Date Start Date Code Code System Note Provider Name and Address Organization Details Recorded Time 950709 Substance with sulfonami de structure and antibacte rial mechanism of action (substanc e) medicatio n Not available Not available Not available 09/30/20212021 25829 8003 SNOMED Ranjana Ayala null, [place] - [facility] 2 08:35:49 Medications Name Sig Start Date Stop Date Status Note LastModified by Organization Details LastModified Time amoxicill in 500 mg capsule Take 1 capsule twice a day by oral route. 11/03 completed Not Available Not Available Not Available atorvasta tin 40 mg tablet Take 1 tablet every day by oral route. 06/09 completed Not Available Not Available Not Available Bromfed DM 2 mg-30 mg-10 mg/5 mL oral syrup 1 teaspoon quid 02/14 completed Not Available Not Available Not Available promethaz ine-DM 6.25 mg-15 mg/5 mL oral syrup Take 5 mL every 4 hours by oral route as needed for 5 days. 04/02 completed Not Available Not Available Not Available neomycin- polymyxin -hydrocor t 3.5 mg/mL-10, 000 unit/mL-1 % ear solution 04/22 completed Not Available Not Available Not Available doxycycli ne hyclate 100 mg capsule Take 1 capsule twice a day by oral route as directed for 7 days. 04/02 completed Not Available Not Available Not Available azithromy charly 250 mg tablet TAKE 2 TABLETS (500 MG) BY ORAL ROUTE ONCE DAILY FOR 1 DAY THEN 1 TABLET (250 MG) BY ORAL ROUTE ONCE DAILY FOR 4 DAYS 04/22 completed Not Available Not Available Not Available hydrocodo ne 5 mg-acetam inophen 325 mg tablet 08/04 completed Not Available Not Available Not Available Celestone Soluspan 6 mg/mL suspensio n for injection Take 12 mg by injectio n route. 10/24 completed Not Available Not Available Not Available Keflex 500 mg capsule Take 1 capsule 3 times a day by oral route. 08/23 completed Not Available Not Available Not Available Medrol (Boo) 4 mg tablets in a dose pack take as directed for 6 days 03/31 completed Medrol (Boo) 4 mg oral tablets, dose pack;Pre scribe Status: Prescrib ed on: 03/17/20 14 10:44AM; Disconti nued Status: Disconti nued on: 03/31/20 14 11:02AM; User: [email or web address];Hattie t. Completi on: 03/23/20 14;Pharm acJason ied: 03/17/20 14 10:44AM Not Available Not Available Not Available prednison e 5 mg tablet 09/30 completed Not Available Not Available Not Available Anucort-H C 25 mg supposito ry 08/04 completed Not Available Not Available Not Available promethaz ine 6.25 mg-codein e 10 mg/5 mL syrup 5 cc q 4-6 hours po prn 04/02 completed Not Available Not Available Not Available penicilli n V potassium 500 mg tablet Take 1 tablet 4 times a day by oral route. active Not Available Not Available No t Available sulfameth oxazole 800 mg-trimet hoprim 160 mg tablet Take 1 tablet every 12 hours by oral route. 09/30 completed Not Available Not Available Not Available tramadol 50 mg tablet Take 1 tablet 3 times a day by oral route. active Not Available Not Available No t Available Depo-Medr ol 80 mg/mL suspensio n for injection Take 40 mg by injectio n route. 04/02 completed Not Available Not Available Not Available Voltaren 75 mg tablet,de layed release Take 1 tablet twice a day by oral route as directed for 30 days. 11/08 completed Not Available Not Available Not Available Celebrex 200 mg capsule take 1 capsule (200 mg) by oral route 2 times per day as needed for 30 days 03/09 completed Celebrex 200 mg oral capsule; Prescrib e Status: Prescrib ed on: 04/22/20 14 9:47AM;D iscontin ued Status: Disconti nued on: 03/09/20 15 1:13PM;U ser: [email or web address]; Est. Completi on: 06/21/20 14;Pharm acJason ied: 04/22/20 14 9:47AM Not Available Not Available Not Available meloxicam 7.5 mg tablet take 1 tablet (7.5 mg) by oral route once daily 03/17 completed meloxica m 7.5 mg oral tablet;P rescribe Status: Prescrib ed on: 02/12/20 14 10:56AM; Disconti nued Status: Disconti nued on: 03/17/20 14 10:33AM; User: [email or web address]; Pharmacy Verified : 02/12/20 14 10:56AM Not Available Not Available Not Available ciproflox acin 0.3 % eye drops 03/23 completed Not Available Not Available Not Available doxycycli ne monohydra te 100 mg capsule 04/02 completed Not Available Not Available Not Available Lincocin 300 mg/mL injection solution Take 1 mL by injectio n route. 01/23 completed Not Available Not Available Not Available Lavinia-D 12 Hour 60 mg-120 mg tablet,ex tended release Take 1 tablet twice a day by oral route. 08/23 completed Not Available Not Available Not Available omeprazol e 20 mg capsule,d elayed release TAKE 1 CAPSULE BY MOUTH DAILY. 06/09 completed Not Available Not Available Not Available ceftriaxo ne 500 mg solution for injection Take 500 mg by injectio n route. 02/14 completed Not Available Not Available Not Available diclofena c sodium 50 mg tablet,de layed release Take 1 tablet twice a day by oral route. active Not Available Not Available No t Available dexametha sone sodium phosphate 4 mg/mL injection solution Take 1 mL by injectio n route. 04/02 completed Not Available Not Available Not Available prednison e 5 mg tablets in a dose pack Take 1 dose pk every day by oral route as directed . 09/30 completed Not Available Not Available Not Available Cipro HC 0.2 %-1 % ear drops,kamini pension INSTILL 3 DROPS INTO AFFECTED EAR(S) BY OTIC ROUTE EVERY 12 HOURS 03/23 completed Not Available Not Available Not Available dicyclomi ne 10 mg capsule Take 1 capsule 3 times a day by oral route. 04/18 completed Not Available Not Available Not Available gentamici n 0.1 % topical ointment APPLY TO LEFT EAR BID 04/22 completed Not Available Not Available Not Available naproxen 500 mg tablet take 1 tablet (500 mg) by oral route every 12 hours with food for 14 days 01/14 completed naproxen 500 mg oral tablet;P rescribe Status: Prescrib ed on: 01/01/20 14 3:37PM;D iscontin ued Status: Disconti nued on: 01/15/20 14 8:29AM;U ser: [email or web address] Est. Completi on: 01/15/20 14;Pharm acyVerif ied: 01/01/20 14 3:37PM Not Available Not Available Not Available amoxicill in 875 mg-potass ium clavulana te 125 mg tablet 04/22 completed Not Available Not Available Not Available simethico ne 80 mg chewable tablet Take 1 tablet 3 times a day by oral route as needed. 04/22 completed Not Available Not Available Not Available Bactrim 400 mg-80 mg tablet Take 1 tablet every 12 hours by oral route as directed for 10 days. 03/23 completed Not Available Not Available Not Available cyclobenz aprine 5 mg tablet take 1 tablet (5 mg) by oral route 3 times per day active Not Available Not Available No t Available Voltaren one bid 02/09 completed voltaren 75 mg.;Morris rded Status: Recorded on: 06/23/20 15 11:27AM; Disconti nued Status: Disconti nued on: 02/10/20 16 1:03PM;U ser: [email or web address]; Est. Completi on: 08/02/20 15;Indic ation: foot - (-5) Not Available Not Available Not Available Prednison e (Boo) as directed 02/09 completed predniso ne dospkg 5 mg.;Morris rded Status: Recorded on: 06/23/20 15 11:27AM; Disconti nued Status: Disconti nued on: 02/10/20 16 1:03PM;U ser: [email or web address]; Est. Completi on: 06/29/20 15;Indic ation: foot - (-5) Not Available Not Available Not Available GaviLyte- G 236 gram-22.7 4 gram-6.74 gram-5.86 gram oral solution 08/04 completed Not Available Not Available Not Available Solu-Medr ol (PF) 125 mg/2 mL solution for injection Take 62.5 mg by injectio n route. 04/02 completed Not Available Not Available Not Available Vitals Date Recorded Body height Body mass index (BMI) Body weight Heart rate Oxygen saturation Oxygen saturation in Arterial blood by Pulse oximetry Respiratory rate Pain severity - 0-10 verbal numeric rating [Score] - Reported Systolic And Diastolic Provider Name and Address Organization Details Last Updated DateTime 2 167.64 cm 28.6 kg/m2 39292.8 5 g 95 /min 98 % 98 % 18 /min 3 126/80 mm[Hg] [facility] 2 14:19:52 Date Recorded Systolic And Diastolic Provider Name and Address Organization Details Last Updated DateTime 11/03/2021 130/88 mm[Hg] Wm Phillips [place] - [facility] 11/03 10:52:20 Date Recorded Body height Body mass index (BMI) Body weight Body temperature Heart rate Oxygen saturation Oxygen saturation in Arterial blood by Pulse oximetry Respiratory rate Pain severity - 0-10 verbal numeric rating [Score] - Reported Provider Name and Address Organization Details Last Updated DateTime 2 167.64 cm 28.1 kg/m2 21884.0 7 g 97.7 [degF] 74 /min 96 % 96 % 18 /min 0 Trinity Granger [place] - [facility] 2 10:35:59 Date Recorded Body height Body mass index (BMI) Body weight Provider Name and Address Organization Details Last Updated DateTime 03/31/2022 167.64 cm 27.6 kg/m2 03746.3 g [facility] 03/31/2022 16:06:44 Date Recorded Body height Body mass index (BMI) Body weight Heart rate Oxygen saturation Oxygen saturation in Arterial blood by Pulse oximetry Respiratory rate Pain severity - 0-10 verbal numeric rating [Score] - Reported Systolic And Diastolic Provider Name and Address Organization Details Last Updated DateTime 2 167.64 cm 27.1 kg/m2 50723.5 2 g 81 /min 98 % 98 % 18 /min 7 128/80 mm[Hg] [facility] 2 12:57:48 Date Recorded Body height Body mass index (BMI) Body weight Heart rate Oxygen saturation Oxygen saturation in Arterial blood by Pulse oximetry Respiratory rate Pain severity - 0-10 verbal numeric rating [Score] - Reported Systolic And Diastolic Provider Name and Address Organization Details Last Updated DateTime 2 167.64 cm 27.4 kg/m2 28265.7 g 77 /min 97 % 97 % 18 /min 10 124/80 mm[Hg] Ranjana DENNISON [facility] 2 14:44:06 Social History Question Answer Notes LastModified by Organizat ion Details LastModified Time Tobacco Smoking Status Never Smoker Not Available [email or web address] 06/05/2020 03:13:30 Able To Swim? Yes [email or web address] Information not available 10/24/2017 Do You Have An Advance Directive? Yes [id number] Information not available 06/05/2020 Do You Wear A Helmet When Biking? No [id number] Information not available 06/05/2020 Are You Blind Or Do You Have Difficulty Seeing? No [id number] Information not available 06/05/2020 What Is Your Level Of Caffeine Consumption? Occasional [id number] Information not available 06/05/2020 Are You Deaf Or Do You Have Serious Difficulty Hearing? No [id number] Information not available 06/05/2020 What Type Of Diet Are You Following? REGULAR [id number] Information not available 06/05/2020 Which Illicit Or Recreational Drugs Have You Used? N/a [id number] Information not available 06/05/2020 What Is The Highest Grade Or Level Of School You Have Completed Or The Highest Degree You Have Received? [id number] [email or web address] Information not available 11/03/2021 Swimming/diving No [email or web address] Informati on not available 10/24/2017 Have There Been Any Changes To Your Family Or Social Situation? No [email or web address] Information no t available 11/03/2021 Hard Of Hearing Or Deaf In One Or Both Ears? No [email or web address] Information not available 10/24/2017 Legally Blind In One Or Both Eyes? No [email or web address] Information no t available 10/24/2017 Live Alone Or With Others? With Others [email or web address] Information not available 10/24/2017 Do You Have A Medical Power Of Boating Safety Officer? No [email or web address] Information not available 11/03/2021 What Was The Date Of Your Most Recent Tobacco Screening? 06/09/2022 [email or web address] Information not available 06/09/2022 Do You Use Protection During Sex? No [id number] Information not available 06/05/2020 What Is Your Relationship Status? [id number] Information not available 06/05/2020 Seat Belts Used Routinely Yes [email or web address] Information not available 10/24/2017 Are You Sexually Active? Yes [id number] Information not available 06/05/2020 Smoke Alarm In Home Yes [email or web address] Information not available 10/24/2017 Do You Have Smoke And Carbon Monoxide Detectors In Your Home? Yes [email or web address] Information not available 11/03/2021 Are You Passively Exposed To Smoke? No [email or web address] Information no t available 10/24/2017 General Stress Level Medium [email or web address] Information not available 10/24/2017 Do You Use Sunscreen Routinely? No [id number] Information not available 06/05/2020 Has Tobacco Cessation Counseling Been Provided? No [id number] Information not available 06/05/2020 Do You Have Difficulty Walking Or Climbing Stairs? No [id number] Information not available 06/05/2020 Sex: Male Functional Status Question Answer Note LastModified by Organizat ion Details LastModified Time Do you use any illicit or recreational drugs? No [email or web address] Information not available 05/28/2021 What is your level of alcohol consumption? None [id number] Information not available 06/05/2020 Do you or have you ever used smokeless tobacco? Never used smokeless tobacco [id number] Information not available 06/05/2020 Are you currently employed? No [email or web address] Information not available 11/03/2021 Do you have transportation difficulties? No Information not available 11/03/2021 Are you able to walk independently without assistance or assistive devices? YESWOREST [id number] Information not available 06/05/2020 Do you have difficulty doing errands alone? No [id number] Information not available 06/05/2020 Are you able to care for yourself independently? Yes [id number] Information not available 06/05/2020 Do you have difficulty dressing, bathing, grooming, or toileting? No [id number] Information not available 06/05/2020 Do you or have you ever used e-cigarettes or vape? Never used electronic cigarettes [id number] Information not available 06/05/2020 What is your exercise level? Moderate [id number] Information not available 06/05/2020 Mental Status Question Answer Note LastModified by Organizat ion Details LastModified Time Do you feel stressed (tense, restless, nervous, or anxious, or unable to sleep at night)? [id number] [email or web address] Information not available 11/03/2021 Do you have difficulty concentrating, remembering or making decisions? No [id number] Information no t available 06/05/2020 Family History Relationship Description Onset Age of this Age Resolved Age Notes LastModified by Organization Details LastModified Time Father Myocardial infarction Not available 07/21 13:39:32 Mother Diabetes mellitus [email or web address] Not available 08/04 13:39:42 Notes:open heart surgery Medical History No medical history recorded. Immunizations Vaccine Type Date Status Note Provider Name and Address Organization Details Recorded Time Influenza, high-dose, quadrivalent, PF 06/09/20 22 cancelled patient objection Ochoa Pickard MD [address], [place], [address], [facility] 06/09/2022 14:47:39 Influenza, split virus, quadrivalent, preservative 10/25/19 18 cancelled patient objection Not Available [facility]/07/2019 03:54:57 Past Encounters Encounter ID Performer Location Encounter Start Date Encounter Closed Date Diagnosis/Indication Diagnosis SNOMED-CT Code Diagnosis ICD10 Code Diagnosis IMO Codes Diagnosis Note [id number] Ochoa Pickard MD [facility] [address] [place] [address] 08/04/2016 13:11:38 08/05/2016 09:45:59 Arthritis of knee 022269277 M13.933 [id number] Ochoa Pickard MD [facility] [address] [place] [address] 11/08/2016 09:51:02 11/08/2016 10:44:40 Otitis externa 2473125 H62.40 [id number] Ochoa Pickard MD [address] [place] [place] [address] 03/23/2017 13:16:42 03/23/2017 14:40:39 Screening for cardiovascular system disease 904585013 Z13.6 Body mass index 20-24 - normal 703163165 Z68.24 Upper resp iratory infection 93228773 J06.9 Acute bronchitis 7606767 2 J20.9 Hyperlipidemia 95582882 E78.5 [id number] Ochoa Pickard MD [address] [place] [address] 10/24/2017 12:28:06 10/24/2017 14:41:37 Body mass index 25-29 - overweight 109481280 Z68.29 Administra tion of influenza vaccine 64059261 Z23 Abdominal pain 43291570 R10.9 Fatigue 49875807 R53.83 Hyperlipidemia 09300614 E78.5 Chest discomfort 2996188 09 R07.89 [id number] Ochoa Pickard MD [address] [place] [address] 12/21/2017 10:34:21 12/21/2017 12:11:45 Upper respiratory infection 37044336 J06.9 Acute bronchitis 3738224 2 J20.9 Hyperlipidemia 84569015 E78.5 [id number] Ochoa Pickard MD [address] [place] [address] 02/14/2018 09:32:03 02/14/2018 10:47:06 Body mass index 25-29 - overweight 864394101 Z68.28 Foot pain 29621716 M79.6 72 Contusion of foot 569384 04 S90.32XA Hyperlipidemia 00268308 E78.5 [id number] Ochoa Pickard MD [address] [place] [address] 04/06/2018 09:45:44 04/06/2018 11:29:09 Otitis media 24505868 H66.90 Hyperlipidemia 79280941 E78.5 [id number] Leonor Peres [address] [place] [address] 08/23/2018 14:17:56 08/23/2018 15:21:40 Increased frequency of urination 486157957 R35.0 Blurring o f visual image 753202114 H53.8 Elevated blood-pressure reading without diagnosis of hypertension 682508839 R03.0 Viral screening 48087700 4 Z11.59 Screening for malignant neoplasm of prostate 732050383 Z12.5 [id number] Leonor Peres [address] [place] [address] 09/04/2018 15:44:54 09/07/2018 09:44:39 Upper respiratory infection 10600409 J06.9 Cough 58034733 R05 [id number] Leonor Peres [address] [place] [address] 10/12/2018 14:20:29 10/12/2018 15:46:19 Headache 59344414 R51 Blurring o f visual image 313887493 H53.8 Dizziness 783879925 R42 [id number] Ochoa Pickard MD [address] [place] [address] 11/14/2018 09:17:03 11/14/2018 11:39:49 Serous otitis media 52735125 H65.02 Hyperlipidemia 09939638 E78.5 Otitis 00635333 H66.92 [id number] Kady Barrios [address] [place] [address] 01/18/2019 13:02:20 01/18/2019 13:36:12 Upper respiratory infection 22021481 J06.9 Cough 52905191 R05 [id number] Ochoa Pickard MD [address] [place] [address] 01/23/2019 13:10:13 01/23/2019 14:32:14 Cough 78314036 R05 Acute bronchitis 0410821 2 J20.9 Bronchitis 14046862 J40 [id number] Ochoa Pickard MD [address] [place] [address] 04/02/2019 10:30:21 04/02/2019 11:47:57 Foot pain 53906116 M79.672 Soft tissu e lesion of foot region 549873903 M79.9 Hyperlipidemia 53340927 E78.5 [id number] Ochoa Pickard MD [address] [place] [address] 04/16/2019 13:30:34 04/16/2019 15:42:37 Abdominal bloating 647826316 R14.0 Hyperlipidemia 57423149 E78.5 Bowel soun ds hyperactive 70467218 R19.12 [id number] Ochoa Pickard MD [address] [place] [address] 05/01/2019 14:31:33 05/01/2019 16:22:14 Hyperlipidemia 65537047 E78.5 Tachycardia 4642125 R00. 0 Body mass index 30+ - obesity 983199898 Z68.31 Heat exposure 66486885 T 67.9XXA [id number] Ochoa Pickard MD [address] [place] [address] 05/09/2019 15:32:20 05/09/2019 17:50:01 Otitis externa 1286124 H62.40 Hyperlipidemia 29909202 E78.5 [id number] Ochoa Pickard MD [address] [place] [address] 04/22/2020 15:39:52 04/22/2020 16:50:40 Hyperlipidemia 90288254 E78.5 Abdominal pain 30385024 R10.9 Fatigue 47830836 R53.83 Screening for malignant neoplasm of prostate 505553464 Z12.5 Family his tory of diabetes mellitus 796115141 Z83.3 Insomnia 607590506 G47.0 0 [id number] Ochoa Pickard MD [facility] [address] [place] [address] 05/28/2021 13:45:04 05/28/2021 16:02:05 Abdominal pain 81355159 R10.9 Fatigue 50412939 R53.83 Hyperlipidemia 62636457 E78.5 Abdominal discomfort 433 73927 R10.9 [id number] Ochoa Pickard MD [facility] [address] [place] [address] [place] [address] 09/15/2021 14:10:32 09/15/2021 15:20:26 Abdominal discomfort 91834895 R10.9 Sinusitis 73977101 J32.9 Hyperlipidemia 30538207 E78.5 Gastroesop hageal reflux disease 813950014 K21.9 Acute sinusitis 35329146 J01.90 [id number] Wm Phillips MD [address] [place] [address] 11/03/2021 10:22:43 11/03/2021 11:17:48 Adult health examination 878390522 Z00.00 Get labs. Follow up with me in a week to discuss test results Overweight 246640239 E66 .3 Take a low fat diet, exercise and loose weight. Follow up in 3 months. Screening for malignant neoplasm of prostate 090678539 Z12.5 Elevated blood-pressure reading without diagnosis of hypertension 486563420 R03.0 Recommende d to reduce dietary sodium intake to less than 100 mEq (2.3 g of sodium or 6 gram of sodium chloride)/ day. Discussed weight loss, DASH diet and exercise program. Monitor blood pressure {BP} at home. Goal BP of 130 to 139/<90 mmHg (using routine clinician office measuremen ts) or 125 to 135/<90 mmHg (using home blood pressure). Let me know if BP is not goal. Follow up with blood pressure readings in a couple of weeks. Screening for malignant neoplasm of colon [id number] Z12.11 Tells me he had a normal COLONOSCOP Y at age of 61 yrs and was asked at that time to get a repeat one in 10 yrs- get records Immunization advised [id number] Z71.9 Patient has declined to get Td/Tdap, Pneumonia, COVID, Shingles and Influenza vaccines despite counsellin g and education [id number] Ochoa Pickard MD [address] [place] [address] 03/31/2022 15:51:07 03/31/2022 16:57:25 Gastroesophageal reflux disease [id number] K21.9 Fatigue 65988541 R53.83 Family his tory of diabetes mellitus type 2 438251590 Z83.3 Headache 54835636 R51.9 Hyperlipidemia 13497499 E78.5 [id number] Ochoa Pickard MD [address] [place] [address] 06/09/2022 12:42:51 06/09/2022 13:31:28 Body mass index 25-29 - overweight 200504898 Z68.28 BMI 27.1 Gastroesop hageal reflux disease 082278555 K21.9 Hyperlipidemia 10921163 E78.5 Neck pain 27416593 M54.2 Screening for malignant neoplasm of prostate 565923654 Z12.5 Administra tion of influenza vaccine 23737528 Z23 Osteoarthritis 484911914 M19.90 [id number] Ochoa Pickard MD [address] [place] [address] 07/07/2022 14:38:54 07/07/2022 15:29:37 Low back pain 780072236 M54.50 Health Concerns Section Related Observation LastModified by Organization Detai ls LastModified Time None Recorded Concern Status LastModified by Organization Details LastModified Time None Recorded Advance Directives Directive Y: Payers Insurance Date Sequence Insurance Name Policy Number Policy Rajan Covered Member ID Rajan Member ID Guarantor Name 04/22/2020 1 [employer] - [employer] (MEDICAID REPLACEMENT - HMO) RONNI Ayala [id number] Lm Ayala 04/10/2023 [place] [facility] WRAP BILLING (MEDICAID) RONNI Ayala [id number] Lm Ayala 04/10/2023 [facility] - MEDICARE A-[place] - [facility] (MEDICARE) Lm Ayala [id number] Lm Ayala 04/10/2023 1 [employer] (MEDICARE REPLACEMENT/AD VANTAGE - HMO) Lm Ayala [id number] Lm Ayala 03/30/2022 2 [employer] - [place]) Lm Ayala [id number] Lm Ayala 12/28/2021 2 [place] Lm Ayala [id number] Lm Ayala 10/18/2016 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 For location, patient reportsepigastric. For severity, patient reportsmild. For duration, patient reportsconstant. For onset/timing, patient reportsgradual. For modifying factors, patient reportsnothing gives relief.ROS as noted in the HPI Ochoa Pickard MD [address], [address], [facility] - [facility] 09/16/2021 15:26:01 11/03/2021 text/html Pt is here to establish care. He has been feeling well. No complaints or symptoms reported. No Hx of diabetes, high blood pressure, heart issues or stroke. Allergic to sulfa. He has never been a smoker. He does not drink alcohol or use illicit drugs Wm garcia [place] - [facility] 11/05/2021 10:47:42 03/31/2022 text/html ROS as noted in the HPI headaches, fatiguefamily history of diabetesglucose 90 in officeHemoglobin A1C 6.1 Ochoa Pickard MD [address], [place], [address], [facility] - [facility] 04/04/2022 10:56:27 06/09/2022 text/html ROS as noted in the HPI neck painback painfasting labs Ochoa Pickard MD [address], [place], [address], [facility] - [facility] 06/09/2022 14:51:33 07/07/2022 text/html Musculoskeletal PainReported by PatientHPIFor location, patient reportspain radiating to the buttocksandpain radiating to the legs bilateralbut reportslumbar spine. For quality, patient reportssharp. For severity, patient reportsinterference with sleep. For timing, patient reportsconstant. For aggravating factors, patient reportsmovement/positi oning,bending over, andtwisting.ROS as noted in the HPI Ochoa Pickard MD [address], [place], [address], [place] - [facility] 07/12/2022 09:28:58
--- OUTSIDE RECORDS SUMMARY | 2025-06-26 20:14 | XMS_ITS | Clinical Summary ---
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 Name Role Phone Unavailable Primary Care Provider Unavailabl e Social History Tobacco Use Types Packs/Day Years Used Date Smoking Tobacco: Never Sex and Gender Information Value Date Recorded Sex Assigned at Not on file Legal Sex Male 8:15 PM EDT Gender Identity Not on file Sexual Orientation Not on file Last Filed Vital Signs Vital Sign Reading Time Taken Comments Blood Pressure - - Pulse - - Temperature - - Respiratory Rate - - Oxygen Saturation - - Inhaled Oxygen Concentration - - Weight 83.6 kg (184 lb 3.1 oz) 05/12/2014 10:44 AM EDT Height 167.6 cm (5' 6 ) 05/12/2014 10:44 AM EDT Body Mass Index 29.73 05/12/2014 10:44 AM EDT Plan of Treatment Not on file
== END 2025-06-25 23:59 | disposition home or self-care (01) ==
LOC: LAB.DROPOF 06-26 20:12
PROVIDERS: PCP Family Medicine; Visit Provider Family Medicine
DX: Z12.5 Encounter for screening for malignant neoplasm of prostate (principal)
CPT/HCPCS: G0103